=== PATIENT | female | born 1975 ===

== ENCOUNTER 2023-08-28 19:34 | Emergency (ER) | payer MEDICARE, MEDICAID, SELFPAY ==
[2023-08-28 19:35] VITALS: BP 133/70
--- NOTE | 2023-08-28 19:59 | ED.GENMED ---
History of Present Illness
General
Chief Complaint: Crisis Evaluation
Source: patient
Exam Limitations: none
Time Seen by Provider: 08/28/23 19:58
History of Present Illness
History of Present Illness:
See MDM
Past History
Past History
ED Past Medical History: Psychiatric
ED Past Surgical History: Orthopedic
Social History
Tobacco: Non-smoker
Alcohol: None
Phy Exam
Physical Exam
Physical Exam:
See MDM
Course
Orders/Labs/Results
Orders:
Orders
08/28/23 20:00
Crisis Consult Urgent
Reason for Consult: depression
08/28/23 20:35
Complete Blood Count/With Diff Urgent
Comprehensive Metabolic Panel Urgent
[place] Urgent
Comment: ADD ON
08/28/23 22:33
Trazodone [Desyrel] 50 mg PO NOW STA
08/28/23 22:43
Add On- LAB Urgent
Tests Added?: lithium level
08/28/23 22:53
Clozapine [Clozaril] 300 mg PO NOW STA
08/28/23 23:05
[place] Carbonate Regular Rel. [Eskalith Regular Release] 900 mg PO NOW STA
08/28/23 23:31
Urine Drug Abuse Screen Urgent
Date Specimen was Collected: 08/28/23
Time Specimen was Collected: 23:28
Abnormal Lab Results
08/28/23
20:35
MCHC 32.7 L g/dL
(33.0-37.0)
RDW 15.3 H %
(11.5-14.5)
Glucose 105 H mg/dl
(70-99)
Calcium 10.5 H mg/dl
(8.4-10.2)
08/28/23 20:35
08/28/23 20:35
Vital Signs
Initial and Last Documented VS:
Initial Vital Signs
Temp Pulse Resp BP Pulse Ox
99.6 F 83 20 133/70 96
08/28/23 19:35 08/28/23 19:35 08/28/23 19:35 08/28/23 19:35 08/28/23 19:35
Last Documented Vital Signs
Temp Pulse Resp BP Pulse Ox
99.6 F 83 20 133/70 96
08/28/23 19:35 08/28/23 19:35 08/28/23 19:35 08/28/23 19:35 08/28/23 19:35
MDM/Problems Addressed
Differential Diagnosis Includes:
HPI and MDM Narrative:
47-year-old female presenting for evaluation of depression and suicidal thoughts. Patient comes from [facility]. She has underlying psychiatric disorder. She states she has been hearing voices but states this is somewhat normal for her. She
states she flipped a table at the facility and started scratching her arms and indicated that she wanted to kill herself. Patient is currently denying suicidal ideations but states she wants to sign her into a psych facility. Her scratches on her
forearms are extremely superficial and require no wound care.
Will have crisis evaluate
Physical exam
General: Well appearing and non-toxic
HEENT: protecting airway
Neck: appears supple
CV: No evidence of cyanosis
Resp: No accessory muscle use
Abd: Non-distended
Extremities: No deformities
Neuro: alert
Psych: Flat affect
Skin: Extremely superficial linear scratches to bilateral forearms
Problems Addressed including Acute and Chronic Conditions affecting care:
1. Depression
Acuity: acute
Prognosis: stable
Details: Will have crisis evaluate for increased depression and suicidal thoughts. She is currently denying any purposeful self-harm but does want to go inpatient psychiatric
Updates
Crisis started bed search
Differential Diagnosis (but not limited to): Depression, suicidal thoughts
Testing considered: Urinalysis but she denies any symptoms
Drug therapy (if applicable): OTC meds, please see d/c instruction regarding Rx drugs
Amount and/or Complexity of Data Reviewed
Clinical info obtained from: Patient
External data reviewed: N/A
Labs I independently reviewed (but not limited to): Sodium level normal
Radiology: N/A
Pulse Ox: not hypoxic
EKG independently reviewed: N/A
Auto Damage Appraiser: N/A
Critical Care: N/A
Risk of Complication:
Social Determinants of health: Poor social support
Discussed with other providers: Crisis
Escalation of Care includes Admit/Obs: Given depression with suicidal thoughts, crisis searching for beds
Occasional wrong word or 'sound a like' substitutions may have occurred due to the inherent limitations of voice recognition software. Read the chart carefully and recognize, using context, where substitutions have occurred.
*Critical Care Note
Total Time (30-74mins, 75-104mins- exclusive of procedures): Not Applicable
ED Attending Note
-
Portions of this chart may have been created with voice recognition software.� Occasional wrong word or��sound alike� substitutions may have occurred due to the inherent limitations of voice recognition software.
Discharge Plan
Departure
Patient Disposition: Psych Facility
Date of Disposition: 08/28/23
Time of Disposition: 23:00
Patient Status:: 201
Discharge Problem:
Depression
Prescriptions:
No Action
atorvastatin 40 mg Tablet
40 mg PO HS
clozapine 50 mg Tablet
350 mg PO HS
Patient Comments:
Instructions to give 7 tablets by mouth at bedtimre
levothyroxine 137 mcg Tablet
137 mcg PO DAILY
trazodone 50 mg Tablet
50 mg PO HS
polyethylene glycol 3350 17 gram Powder In Packet
17 g PO DAILY PRN (Reason: constipation )
hydroxyzine HCl 50 mg Tablet
50 mg PO QID PRN (Reason: anxiety/itching )
melatonin 3 mg Tablet
3 mg PO HS
lithium carbonate 450 mg Tablet Extended Release
900 mg PO HS
magnesium oxide [MagOx] 400 mg (241.3 mg magnesium) Tablet
800 mg PO BID
cyanocobalamin (vitamin B-12) 500 mcg Tablet
500 mcg PO DAILY
folic acid 1 mg Tablet
1 mg PO DAILY
gabapentin 100 mg Capsule
100 mg PO TID
lithium carbonate 300 mg Tablet
300 mg PO DAILY
loratadine 10 mg Tablet
10 mg PO DAILY
prazosin 2 mg Capsule
2 mg PO HS
Patient Comments:
Give 1 capsule by mouth at bedisde for HTN, hold for SBP > 100
cholecalciferol (vitamin D3) [Vitamin D3] 25 mcg (1,000 unit) Tablet
50 mcg PO DAILY
Referrals:
Stefano Mccarthy, [Family Provider] -
Interventions
Interventions:
*Risk Screen - Suicide Last Done: 08/28/23 19:35
*General Assessment Last Done: 08/28/23 19:35
*Neglect/Abuse Screening Last Done: 08/28/23 19:35
ED- Fall Risk Assessment Last Done: 08/28/23 20:57
*ED COVID-19 Vaccine History Last Done: 08/28/23 19:35
ED-Psychological Assessment Last Done: 08/28/23 20:57
Discharge Date and Time
Print Language: HUNGARIAN
[2023-08-28 20:40] LABS: % Basophils 0.3 % (0-2); % Immature Granulocytes 0.1 % (0-0.5); % Lymphocytes 39.4 % (20.5-51.1); % Monocytes 7.5 % (1.7-9.3); % Neutrophils 52.7 % (42.2-75.2); Absolute Lymphocytes 2.8 10^3/uL (1.2-3.4); Absolute Monocytes 0.5 10^3/uL (0.1-0.6); Absolute Neutrophils 3.7 10^3/uL (1.4-6.5); Hematocrit 38.8 % (37.0-47.0); Hemoglobin 12.7 g/dL (12.0-16.0); Mean Corp Hgb Conc. 32.7 g/dL (33.0-37.0); Mean Corpuscular Hgb 29.1 pg (27.0-31.0); Mean Platelet Volume 9.7 fL (7.4-10.4); Nucleated Red Blood Cells % 0 %; Platelet Count 259 10^3/uL (130-400); Red Blood Cell Count 4.36 10^6/uL (4.20-5.40); Red Cell Dist. Width 15.3 % (11.5-14.5); White Blood Cell Count 7.1 10^3/uL (4.8-10.8)
[2023-08-28 21:00] LABS: ALT (SGPT) 20 U/L (0-35); AST (SGOT) 25 U/L (14-36); Albumin 4.2 g/dl (3.5-5.0); Alkaline Phosphatase 82 U/L (38-126); Blood Urea Nitrogen 12 mg/dl (7-17); Calcium 10.5 mg/dl (8.4-10.2); Carbon Dioxide 23 mmol/L (22-30); Chloride 107 mmol/L (98-107); Estimated Creatinine Clearance 108 ml/min; Glucose 105 mg/dl (70-99); Sodium 139 mmol/L (135-145); Total Bilirubin 0.8 mg/dl (0.2-1.3); Total Protein 6.7 g/dl (6.3-8.2); eGFR > 60.00
[2023-08-28] MEDS: DESYREL 50 MG PO (22:38)
[2023-08-28] MEDS: CLOZARIL 300 MG PO (23:29)
[2023-08-28] MEDS: ESKALITH REGULAR RELEASE 900 MG PO (23:29)
[2023-08-28 23:55] LABS: Amphetamines Negative (Negative); Barbiturates Negative (Negative); Benzodiazepines Negative (Negative); Buprenorphine Negative (Negative); Cocaine Negative (Negative); Marijuana Negative (Negative); Methadone Negative (Negative); Methamphetamines Negative (Negative); Opiates Negative (Negative); Phencyclidine Negative (Negative); Tricyclic Antidepressants Negative (Negative)
[2023-08-29 08:18] VITALS: BP 123/82
--- NOTE | 2023-08-29 10:37 | CM ---
CHARLA spoke with Carine, broadcast traffic coordinator at [facility]. She shared that had talked to patient's former CM at [facility]. She was there prior to going to [facility].
Cell number: [phone].
Office Number: [phone]. [phone]
Carine stated that the plan is to have patient transfer from Crisis in ER back to [facility] IP psych. She has been there since 08/16, per Carine. Carine also shared she has been at [place] and [place] locations.
Carine given [facility] Crisis's number. Kayce also made aware of above.
--- NOTE | 2023-08-29 12:12 | ED.CRISIS ---
ED Crisis Note
ED Crisis Note
Subjective:
Patient wants her usual meds
Assessment/Plan:
Patient still awaiting psych/placement. I have ordered her levothyroxine and gabapentin dosing.
[2023-08-29] MEDS: NEURONTIN 100 MG PO (12:21)
[2023-08-29] MEDS: SYNTHROID 137 MCG PO (14:41)
[2023-08-29 19:36] VITALS: BP 125/84
[2023-08-29] MEDS: LIPITOR 40 MG PO (23:35)
[2023-08-29] MEDS: MELATONIN 3 MG PO (23:35)
[2023-08-29] MEDS: MINIPRESS 2 MG PO (23:35)
[2023-08-29] MEDS: DESYREL 50 MG PO (23:35)
[2023-08-29] MEDS: CLOZARIL 300 MG PO (23:42)
[2023-08-29] MEDS: CLOZARIL 50 MG PO (23:42)
[2023-08-30 07:49] VITALS: BP 118/71
[2023-08-30] MEDS: TYLENOL 650 MG PO (08:02)
[2023-08-30] MEDS: LITHOBID (EXTENDED RELEASE) 300 MG PO (08:03)
[2023-08-30] MEDS: SYNTHROID 137 MCG PO (09:10)
== END 2023-08-30 12:39 ==
LOC: EMR 19:34
PROVIDERS: EMERGENCY PHYSICIAN Student in an Organized Health Care Education/Training Program; FAMILY PHYSICIAN Internal Medicine
DX: F32.A Depression, unspecified (principal)
CPT/HCPCS: 99285; 71046; 80053; 80178; 80306; 85025; 93005